=== PATIENT | female | born 1950 | race Caucasian/White ===

== ENCOUNTER 2020-07-06 07:39 | Observation (INO) | payer OTHER ==
[~2020-07-06] VITALS: Ht 160 cm; Wt 99.8 kg
[2020-07-06] VITALS (11 sets, daily range): BP systolic 115–155; BP diastolic 76–711
--- NOTE | ~2020-07-06 | D ---
[address] [address] DISCHARGE SUMMARY Name: TIFFANY GORDON Room: [address] [place] M.RFabrizio#: [id number] Admission: 07/06/20 Attend Phys: Jose Daniel Bynum MD, Discharge: Date of : 52 Report #: [id number] THIS REPORT FOR: cc: Taylor Aguilar MD, Cora A. MD ~ Jose Daniel Bynum MD [facility] DATE OF SERVICE: 07/07/2020 FINAL DISCHARGE DIAGNOSES: 1. Unstable angina. 2. Coronary artery disease, status post PCI with stenting of the LAD and right coronary artery. 3. Hypercholesterolemia. 4. Diabetes. 5. Hypertension. 6. Asthma. 7. Exogenous obesity. PROCEDURES: 07/06/2020 -- Left heart catheterization, left ventriculography, selective coronary arteriography and percutaneous coronary intervention with deployment of drug-eluting stents in the proximal LAD and proximal right coronary artery. HISTORY AND HOSPITAL COURSE: The patient is a very pleasant 69-year-old female with a history of coronary artery disease, status post remote stenting of the right coronary artery in 2013. She has underlying hypertension, hypercholesterolemia, diabetes, asthma and weight excess. Of late, she has noted recrudescence of symptoms similar to her prior angina following a pattern of increasing frequency and severity. In that context, my nurse practitioner reviewed the data with me and cardiac catheterization was recommended. We performed cardiac catheterization on 07/06/2020 and that study revealed 75% tubular proximal LAD stenosis with 70% proximal right coronary artery stenosis just distal to a previously deployed stent. I placed one 3.0 x 18 mm [place] drug-eluting stent in the proximal LAD with 0% residual narrowing and one 2.75 x 8 [place] drug-eluting stent in the proximal right coronary artery with 0% residual narrowing. The patient did well post procedurally. There was no chest pain. There was no increase in troponin, which was 0.06 in the morning post procedure. Additional lab revealed normal electrolytes and no significant abnormalities. She was discharged to home on 07/07/2020 on the following medications: Prasugrel or Effient 10 mg daily with 60 mg dose given periprocedurally, furosemide 40 mg daily, potassium chloride 10 mEq daily, aspirin 81 mg daily, [place] [address] DISCHARGE SUMMARY Name: TIFFANY GORDON Room: [address] [place] Davis#: [id number] Admission: 07/06/20 Attend Phys: Jose Daniel Bynum MD, Discharge: Date of : 52 Report #: [id number] atorvastatin 10 mg daily, metformin 1000 mg taken every morning at breakfast, losartan/hydrochlorothiazide 100/25 one tablet daily, Singulair 10 mg daily, trazodone 150 mg at bedtime, Symbicort b.i.d., albuterol p.r.n., Naprosyn 500 mg b.i.d., gabapentin 400 mg t.i.d., omeprazole 20 mg daily, and p.r.n. sublingual nitroglycerin. The patient is scheduled to return to see my nurse practitioner, Jazmine Gomez, on 07/23/2020 at 1100 hours and myself on 11/13/2020 at 1330 hours. Therefore, the patient is discharged to home in stable condition on the aforementioned medications with followup as iterated above. By: [id number] Daniel Bynum MD, FACC /nt
[~2020-07-06 07:39] MED LIST: CHILDREN'S ASPI81 M1 PO; IMDUR 30 MG TAB30 M1 PO; KLOR-CON 1010 MEQ PO; LASIX 40 MG TAB40 M2 PO; LIPITOR10 MG PO; LOSARTAN-HCTZ1 EAC3 PO; METFORMIN HCL500 MG PO; NAPROSYN500 MG PO; SINGULAIR 10 MG10 M1 PO; SYMBICORT160 MCG/4. INH; TRAMADOL 50 MG50 MG PO; TRAZODONE HCL100 MG PO; VENTOLIN HFA 1818 GM INH
[2020-07-06 08:30] LABS: HEMATOCRIT 39.9 % (37.0-47.0); HEMOGLOBIN 12.9 gm/dL (12.0-15.0); MCH 27.6 pg (26.0-34.0); MCHC 32.3 g/dL (28.0-37.0); MCV 85.5 fL (80.0-100.0); MPV 8.4 fl. (7.2-11.1); RBC 4.66 mil/uL (4.20-5.00); RDW-CV 14.1 % (10.5-14.5); WBC 10.3 thou/uL (4.0-11.0)
[2020-07-06 08:35] LABS: APTT 28.1 Seconds (25.0-31.3); INR 0.9
[2020-07-06 08:38] LABS: ALBUMIN 3.2 g/dL (3.4-5.0); ALKALINE PHOSPHATASE 104 U/L (46-116); ANION GAP 10 mmol/L (7-16); BUN 21 mg/dL (7-18); CALCIUM 8.8 mg/dL (8.5-10.1); CHLORIDE 103 mmol/L (98-107); CHOLESTEROL 179 mg/dL (<200); CO2 27 mmol/L (21-32); CREATININE 1.1 mg/dL (0.6-1.3); GLUCOSE 138 mg/dL (70-99); HDL CHOLESTEROL 39 mg/dL (>40); LDL CHOLESTEROL 117 mg/dL (<100); POTASSIUM 3.6 mmol/L (3.5-5.1); SERUM ASSESSMENT Clear; SGOT 13 U/L (15-37); SGPT 21 U/L (30-65); SODIUM 140 mmol/L (136-145); TC:HDL 4.6 Ratio (Not establshd); TOTAL BILIRUBIN 0.3 mg/dL (<0.1-1.0); TOTAL PROTEIN 6.6 g/dL (6.4-8.2); TRIGLYCERIDE 119 mg/dL (<150); VLDL 24 mg/dL (<40)
[2020-07-06] MEDS ORDERED: NEURONTIN 400M400 M2 PO (08:46)
[2020-07-06] MEDS ORDERED: OMEPRAZOLE 20 M20 M1 PO (08:47)
[2020-07-06] MEDS ORDERED: NITROGLYCERIN0.4 MG SUBLING (08:48)
--- NOTE | 2020-07-06 12:53 | EKG ---
[place] [address] ELECTROCARDIOGRAM REPORT Name: TIFFANY GORDON Room: [address] M.R.#: [id number] Admission: 07/06/20 Attend Phys: Ruchi Shell Discharge: Date of : 52 Date of Service: 07/06/20 1243 Report #: [id number] THIS REPORT FOR: //name// [facility] Test Date: 2020-07-06 Test Time: 12:43:24 Pat Name: TIFFANY GORDON Department: Room: [facility] Gender: F Laryngologist: : 1950 Requested By: Jose Daniel Bynum Order Number: [id number] Neil MD: Jose Daniel Bynum Measurements Intervals Guild Rate: 68 P: 16 WY: 164 QRS: 15 QRSD: 97 T: 41 QT: 417 QTc: 444 Interpretive Statements Sinus rhythm Compared to ECG 04/19/2016 05:39:05 No significant changes Electronically Signed On 07-06-2020 12:53:03 HEALTH/SAFETY JOB TITLES by Jose Daniel Bynum [email or web address] <ELECTRONICALLY SIGNED> By: Jose Daniel Bynum MD, [facility] 07/06/20 1253 1243 1243 Jose Daniel Bynum MD, [facility] /EPI
--- NOTE | 2020-07-06 14:30 | CARD ---
[address] [address] CARDIAC CATH REPORT Name: TIFFANY GORDON Room: [address] [place] M.R.#: [id number] Admission: 07/06/20 Attend Phys: Jose Daniel Bynum MD, Discharge: Date of : 52 Report #: [id number] THIS REPORT FOR: cc: Taylor Aguilar MD, Cora A. MD ~ Jose Daniel Bynum MD [facility] APPROVED REPORT Study performed: 07/06/2020 08:44:53 Patient Details Patient Status: Out-Patient Room #: The patient is a 69 year-old female Event Personnel Jose Daniel Bynum Continuous Still Operator, Ana Maria Edward RN Seo Expert, Micki Martinez RTR Monitor, Joseluis Ramirez Scrub Procedures Performed Art Access - R femoral artery, Left Heart Cath w/or w/o Coronaries LHC, FAITH Place w/wo Plasty Single LAD , FAITH Place w/wo Plasty Single RCA , Hemostasis w/ Mynx Indication Unstable angina Risk Factors Obesity, Hypercholesterolemia Previous Procedures/Diagnoses Previous PCI Admission/Lab Medications/Medications given during procedure Nitroglycerin IC 300 mcg, Angiomax IV bolus 15 ml, Angiomax Drip IV 34.83 ml per hr, Effient PO 60 mg, Aspirin PO 81 mg Procedure Narrative The patient was brought electively to the Cardiac Catheterization Laboratory and was prepped and draped in a sterile manner. The right femoral was infiltrated with 2% Lidocaine subcutaneous anesthesia. A [place] 6 FR sheath was inserted into the right femoral artery. Coronary angiography was performed [place] [address] CARDIAC CATH REPORT Name: TIFFANY GORDON [address]: [address] [id number] Admission: 07/06/20 Attend Phys: Jose Daniel Bynum MD, Discharge: Date of : 52 Report #: [id number] catheters. The right coronary system was accessed and visualized with a 6F 3DRC catheter. The left coronary system was accessed and visualized with a 6F JL4 catheter. The left ventricle was accessed and visualized with a 6F Straight Pigtail catheter. Left ventricular/Aortic Valve gradient assessed via catheter pullback. Left ventriculogram was performed in CARDONA projection. Pre-demployment femoral angiogram was performed . Closure device was deployed with a 6 Fr Mynx. The patient tolerated the procedure well and there were no complications associated with the procedure. There was no hematoma. Intraoperative Conscious Sedation Sedation start time: 09:44 Case end Time: 11:00 Fentanyl 75 mcg Versed 5 mg Fluoro Time: 14.3 minutes Dose: DAP 265812 cGycm2 2327 mGy Contrast Type and Amount: Visipaque 420 ml Diagnostic Cath Left Main 0% narrowing LAD 75% tubular proximal LAD stenosis Circumflex Prominent though nondominant vessel with 0% narrowing Right Coronary 70% proximal stenosis just distal to a previously deployed stent Left Ventriculography The left ventricle is normal in size with normal contractility. The left ventricular ejection fraction is estimated to be 60%. Left ventricular wall motion abnormalities are present. There is no mitral insufficiency. Mild anterior hypokinesis is noted Hemodynamics The aortic pressure is 123/58 mmHg with a mean of 75 mmHg. The left ventricular pressure is 123/2 mmHg with a mean of mmHg. The left ventricular end diastolic pressure is 8 mmHg. There was no gradient across the aortic valve upon pullback. PCI Technique Lesion Anticoagulation was achieved with Angiomax. Patient was preloaded with Angiomax IV 15 ml. Percutaneous coronary intervention was performed on the proximal left anterior descending artery segment. The lesion stenosis prior to intervention was 75% with PIN[place] [address] CARDIAC CATH REPORT Name: TIFFANY GORDON Room: [address] [id number] Admission: 07/06/20 Attend Phys: Jose Daniel Bynum MD, Discharge: Date of : 52 Report #: [id number] 6FR XB 3.0 100CM Guide Catheter was used to engage the lm ostium. A BMW 190cm Interventional Guidewire was used to cross the lesion. BALLOON DILATION A Balloon catheter Trek RX 3.0 X 12 was inserted and inflated up to 16.00atm for 15seconds. STENT DEPLOYMENT A drug-eluting stent [place] RX Stent 3.0X15mm was inserted and inflated up to 12.00atm for 9seconds. Additional Inflation: 16.00atm for 8seconds. Final angiography reveals 0 % stenosis with PINO 3 flow. PCI Technique Lesion 2 Percutaneous Coronary Intervention was performed on the proximal right coronary artery. Patient was preloaded with Angiomax IV 15 ml. The lesion stenosis prior to intervention was 70% with PINO 3 flow. A 6F 3DRC Guide Catheter was used to engage the right ostium. A BMW 190cm Interventional Guidewire was used to cross the lesion. Stent Deployment A drug-eluting stent [place] RX Stent 2.75X8mm was inserted and inflated up to 14.00atm for 10seconds. Additional Inflation: 18.00atm for 8seconds. Additional Inflation: 20.00atm for 7seconds. Final angiography reveals 0 % stenosis with PINO 3 flow. Conclusion 1. Significant coronary artery disease characterized by the following: A 75% tubular proximal LAD stenosis B dominant right coronary artery with 70% proximal narrowing just distal to a previously deployed stent 2. Normal global left ventricular systolic function, estimated ejection fraction of 60% with subtle anterior hypokinesis 3. Normal left-sided hemodynamic study 4. Successful PCI with deployment of a drug[place] [address] CARDIAC CATH REPORT Name: GRODON,NELLY Room: [address] [place] Davis#: [id number] Admission: 07/06/20 Attend Phys: Jose Daniel Bynum MD, Discharge: Date of : 52 Report #: [id number] 75% proximal LAD stenosis with 0% residual narrowing 5. Successful PCI with deployment of drug-eluting stent at site of 70% proximal right coronary stenosis with 0% residual narrowing Recommendations Cardiac Risk Reduction Program Aggressive Medical Therapy Medications Administered Aspirin (any) Prasugrel Diagnostic Cath Approved by: Jose Daniel Bynum MD Date/Time: 07/06/2020 14:28:34 <ELECTRONICALLY SIGNED> By: Jose Daniel Bynum MD, FACC 07/06/20 1430 143 143Jose Daniel Bynum MD, FACC /INF
[2020-07-07] VITALS: BP 137/59
[2020-07-07 04:00] VITALS: BP 118/62
[2020-07-07 04:07] LABS: HEMATOCRIT 34.5 % (37.0-47.0); HEMOGLOBIN 11.2 gm/dL (12.0-15.0); MCH 27.9 pg (26.0-34.0); MCHC 32.4 g/dL (28.0-37.0); MCV 86.1 fL (80.0-100.0); MPV 8.4 fl. (7.2-11.1); RBC 4.01 mil/uL (4.20-5.00); RDW-CV 14.2 % (10.5-14.5); WBC 10.4 thou/uL (4.0-11.0)
[2020-07-07 04:52] LABS: ALBUMIN 2.8 g/dL (3.4-5.0); CALCIUM 8.4 mg/dL (8.5-10.1); POTASSIUM 3.6 mmol/L (3.5-5.1); TOTAL BILIRUBIN 0.2 mg/dL (<0.1-1.0); TOTAL PROTEIN 5.8 g/dL (6.4-8.2); TROPONIN-I LEVEL 0.06 ng/mL (<0.06)
[2020-07-07 08:30] VITALS: BP 144/57
[2020-07-07] MEDS ORDERED: EFFIENT10 MG PO (10:36)
[2020-07-07 12:47] VITALS: BP 144/57
== END 2020-07-07 13:45 | disposition home or self-care (01) ==
LOC: M.CL 07:39 → M.TBA-CV 11:20 → M.2W 13:13
PROVIDERS: ADMIT Internal Medicine; ATTEND Internal Medicine
DX: I25.110 Atherosclerotic heart disease of native coronary artery with unstable angina pectoris (principal); E78.00 Pure hypercholesterolemia, unspecified; I10 Essential (primary) hypertension; J45.909 Unspecified asthma, uncomplicated; E11.9 Type 2 diabetes mellitus without complications; E66.09 Other obesity due to excess calories